=== PATIENT | female | born 1985 | race Caucasian/White ===

== ENCOUNTER 2020-10-31 20:40 | Emergency (ER) | payer MEDICAID ==
[~2020-10-31] VITALS: Ht 157.5 cm; Wt 39.5 kg
[2020-10-31 20:46] VITALS: BP 143/78; Ht 157.5 cm; Wt 39.5 kg
[2020-10-31] MEDS ORDERED: ZPAK PO (21:32)
[2020-10-31] MEDS ORDERED: HYDROCODON-ACE1 EAC7 PO (21:52)
== END 2020-10-31 22:19 | disposition home or self-care (01) ==
LOC: D.ER 20:40
DX: S80.811A Abrasion, right lower leg, initial encounter (principal); W55.01XA Bitten by cat, initial encounter; Y93.9 Activity, unspecified; Y92.9 Unspecified place or not applicable

== ENCOUNTER 2020-11-09 11:19 | Emergency (ER) | payer SELFPAY ==
[~2020-11-09 11:19] MED LIST: HYDROCODON-ACE1 EAC7 PO; ZPAK PO
== END 2020-11-09 11:38 | disposition left against medical advice (07) ==
LOC: D.ER 11:19
DX: R19.00 Intra-abdominal and pelvic swelling, mass and lump, unspecified site (principal)